=== PATIENT | female | born 1970 | race Caucasian/White ===

== ENCOUNTER 2018-07-20 22:31 | Observation (INO) ==
[2018-07-20] MEDS ORDERED: methylPREDNISolone 125 MG/2 ML VIAL IVP ONE (22:36)
[2018-07-20] MEDS ORDERED: Levofloxacin 750 MG/150 ML 750 MG/150 ML BAG IVPB ONE (22:38)
--- NOTE | 2018-07-20 22:40 | Emergency Department Note ---
Disposition Clinical Impression: COPD (chronic obstructive pulmonary disease), Acute bronchitis, Hyperglycemia, drug-induced, Hypoxia Disposition: Admitted As Inpatient Condition: Fair Referrals: Chas Moreira MD [Primary Care Provider] - Forms: ED Satisfaction Letter Time of Disposition: 00:14 SOB HPI - General Chief Complaint: ED Recheck/Abnormal Lab/Rx Stated Complaint: bronchitsis Time Seen by Provider: 07/20/18 22:40 Source: patient Mode of arrival: ambulatory Limitations: no limitations Nursing Notes Reviewed: Yes Vital Signs Reviewed: Yes - History of Present Illness 47-year-old female seen yesterday by the emergency room recommended hospitalization at that time because she had low O2 sats and was typed auscultation with an underlying diagnosis of bronchitis Hicks hospitalization at time today went to local urgent care the doctor there told her she was going to if she went home and went to bed as a result she came up to the emergency room after she went home and then came back to the emergency room because that Sitting on her mind. Admits to having shortness of breath cough congestion wheezing she's been having just a little bit of phlegm production states that is really no fever she denies diarrhea melena hematochezia hematemesis states this is been going on for at least a week plus to see him on a course of antibiotics and as well as steroids with no relief she's doing her breathing treatments 4 times a day she's been told she can do them up to 6 times a day said initially she got better but now she is getting worse. She denies any syncope she denies any rash or lesion she denies anything makes it better she says activity makes it worse actually pain except for with respirations a 2-3 out of 10 denies any additional complaints with complete entire review systems Pt Subjective Complaint: shortness of breath, cough, pain with inspiration Onset (ago): week(s) (2) Context: recent illness Severity: moderate Consistency/Duration: constant, gradually worsening Improves with: bronchodilators Worsens with: exertion, movement, coughing, inspiration Known history of: COPD, asthma Associated symptoms: Reports: pain with inspiration, cough, wheezing. Denies: fever, sputum production, orthopnea, lower extremity pain, polydipsia, parasthesias, palpitations, hemoptysis, diaphoresis, nausea/vomiting, syncope, abdominal pain, sense of impending doom Treatment prior to arrival: bronchodilator Cough present: Yes Cough Description: Involuntary, Strong, Bronchospastic Cough Frequency: Intermittent Sputum production: No - Related Data Home Medications Medication Instructions Recorded Confirmed Montelukast [Singulair] 10 mg PO DAILY 05/31/16 07/20/18 [place] Twist Inhaler. 11/26/16 Previous Rx's Medication Instructions Recorded Albuterol Sulfate [Albuterol 2 puff IH QID #1 inhaler 07/20/18 Inhaler] Benzonatate [Tessalon] 200 mg PO TID PRN #20 capsule 07/20/18 Doxycycline 100 mg PO BID #10 capsule 07/20/18 PredniSONE [Deltasone] 20 mg PO DAILY #7 tablet 07/20/18 levoFLOXacin [Levaquin] 750 mg PO DAILY #7 tablet 07/20/18 predniSONE [PredniSONE] 20 mg PO BID #10 tablet 07/20/18 Allergies Allergy/AdvReac Type Severity Reaction Status Date / Time No Known Allergies Allergy Verified 07/20/18 18:06 All systems ED: reviewed and negative except as stated. Review of Systems: As Per HPI Constitutional: Denies: fever, chills, weakness Eyes: Denies: eye pain, eye discharge ENT ED: Reports: congestion. Denies: ear pain, throat pain Cardiovascular: Reports: dyspnea on exertion. Denies: chest pain, palpitations, syncope Respiratory: Reports: cough, dyspnea, wheezes, sputum production Gastrointestinal: Denies: abdominal pain, nausea, vomiting Genitourinary: Denies: urgency, dysuria, frequency Musculoskeletal: Denies: back pain, neck pain Integumentary: Denies: rash Neurological: Denies: headache, weakness Psychiatric: Denies: anxiety, depression Endocrine: Denies: fatigue Hematological/Lymphatic: Denies: easy bleeding Allergic/Immunologic: Denies: facial swelling Past Medical History - Past Medical History Attestation: Yes The following information was validated with the patient. Source: patient, old records reviewed, nursing notes reviewed Medical history: Reports: asthma, COPD Psychiatric history: Reports: no psych history - Social History Smoking Status: Current every day smoker Smokeless Tobacco Status: No Alcohol use: Reports: none Drug use: Reports: none Physical Exam - General Limitations: no limitations General appearance: alert, anxious, in distress - Head Head exam: atraumatic, normocephalic, normal inspection - Eye Eye exam: Present: normal appearance, PERRL, EOMI - ENT ENT exam: normal exam, normal oropharynx, mucous membranes moist, TM's normal bilaterally, normal external ear exam - Neck Neck exam: Present: normal inspection, full ROM, trachea midline - Chest Chest inspection: Present: normal inspection, symmetric chest wall rise - Respiratory Respiratory exam: Present: normal lung sounds bilaterally, wheezes, prolonged expiratory phase - Cardiovascular Cardiovascular exam: Present: tachycardia, normal heart sounds - Abdominal Exam Abdominal exam: Present: soft, Non-Tender, normal bowel sounds. Absent: mass, pulsatile mass - Extremities Exam Extremities exam: Present: normal inspection, full ROM, normal capillary refill. Absent: tenderness, pedal edema, joint swelling, calf tenderness - Expanded Lower Extremity Exam Gait: observed and normal - Back Exam Back exam: Present: normal inspection, full ROM. Absent: muscle spasm - Neurological Exam Neurological exam: Present: alert, oriented X3, CN II-XII intact, normal gait - Psychiatric Psychiatric exam: Present: normal affect, normal mood - Skin Skin exam: Present: warm, dry, intact, normal color Course Course Narrative: Patient was seen and evaluated patient had low O2 sats as result patient was given appropriate DuoNeb patient has CT of the chest because she's had a chest x-ray twice within the past 48 hours relatively unchanged as result there may be an underlying pneumonia that is visualized on the CAT scan as result patient remaining hypoxic recommend observation she had declined yesterday a shoulder recommend transferred MedSur if she agrees today for bronchopulmonary toilet influenza swab was done - Reevaluation(s) Reevaluation #1: Despite aerosol treatments patient is having maintaining oxygen to keep her sats above 90% as result patient be admitted for failed outpatient therapy and hypoxia is also noted that the prednisone or steroids are causing her sugar to go up cover her for this at this Vital Signs Temperature 99.0 F 07/20/18 22:32 Pulse Rate 116 07/20/18 22:32 Respiratory Rate 16 07/20/18 22:32 Blood Pressure 149/94 07/20/18 22:32 O2 Sat by Pulse Oximetry 89 07/20/18 22:32 Temperature 99.0 F 07/20/18 22:32 Pulse Rate 114 07/20/18 23:24 Respiratory Rate 18 07/20/18 23:24 Blood Pressure 136/82 07/20/18 23:24 O2 Sat by Pulse Oximetry 93 07/20/18 23:24 Oxygen Delivery Oxygen Delivery Nasal Cannula Shortness of Breath/Dyspnea - Differential Diagnosis Likely: acute exacerbation of chronic obstructive airways disease, pneumonia, asthma with exacerbation - Medical Records Medical records reviewed: Yes I reviewed the patient's medical records. - Lab Data Lab results reviewed: Yes I reviewed the patient's lab results. Result diagrams: 07/20/18 22:49 07/20/18 22:49 Lab Results 07/20/18 07/20/18 07/20/18 Range/Units 22:49 22:49 22:49 WBC 14.8 H (4.3-11.1) K/mcL RBC 5.11 H (3.82-4.97) M/mcL Hgb 17.1 H (11.5-15.4) g/dL Hct 48.5 H (35.3-44.9) % MCV 94.9 (83.0-100.0) fL MCH 33.5 H (28.0-33.3) pg MCHC 35.3 (31.6-35.5) g/dL RDW 13.0 (11.5-14.5) % Plt Count 225 (140-400) K/mcL MPV 8.9 L (9.4-12.4) fL Immature Gran % 1.3 (0-4) % Seg Neutrophils % 93.6 % Lymphocytes % 2.5 % Monocytes % 2.4 % Eosinophils % 0.0 % Basophils % 0.2 % Neutrophils # 13.9 H (1.6-8.9) K/mcL Lymphocytes # 0.4 L (0.6-4.6) K/mcL Monocytes # 0.4 (0.0-1.3) K/mcL Eosinophils # 0.0 (0.0-0.6) K/mcL Basophils # 0.0 (0.0-0.2) K/mcL PT 12.0 (9.4-12.1) Seconds INR 1.1 APTT 23.7 L (26.0-36.0) Seconds Sodium 138 (136-145) mEq/L Potassium 3.4 L (3.5-5.1) mEq/L Chloride 97 L (98-107) mEq/L Carbon Dioxide 28 (23-29) mEq/L BUN 23 H (6-20) mg/dL Creatinine 0.82 (0.60-1.20) mg/dL Est GFR ( Amer) > 60 (> 60) Est GFR (Non-Af Amer) > 60 (> 60) BUN/Creatinine Ratio 28 H (6-26) Glucose 320 H (70-105) mg/dL Calculated Osmolality 302 H (280-300) Lactic Acid (0.5-2.2) mmol/L Calcium 9.7 (8.6-10.3) mg/dL Total Bilirubin 0.7 (0.3-1.0) mg/dL AST 12 L (13-39) Units/L ALT 17 (7-52) Units/L Alkaline Phosphatase 56 (34-104) Units/L Serum Total Protein 6.7 (6.4-8.9) g/dL Albumin 4.2 (3.5-5.7) g/dL Globulin 2.5 (2.4-3.5) g/dL Albumin/Globulin Ratio 1.7 (1.1-2.2) Urine Color (Yellow) Urine Clarity (Clear) Urine pH (5.0-8.0) pH Units Ur Specific [place] (1.010-1.025) Urine Protein (Neg-Trace) mg/dL Urine Glucose (UA) (Normal) mg/dL Urine Ketones (Negative) mg/dL Urine Blood (Negative) Urine Nitrite (Negative) Urine Bilirubin (Negative) Urine Urobilinogen (Normal) mg/dL Ur Leukocyte Esterase (Negative) Urine Microscopic RBC (0-3) per hpf Urine Microscopic WBC (0-3) per hpf Ur Squamous Epith Cells (None-Few) per lpf Urine Bacteria (None-Few) per hpf Urine Mucus (Few) Ur Culture Indicated? (NO) 07/20/18 07/20/18 Range/Units 22:49 23:20 WBC (4.3-11.1) K/mcL RBC (3.82-4.97) M/mcL Hgb (11.5-15.4) g/dL Hct (35.3-44.9) % MCV (83.0-100.0) fL MCH (28.0-33.3) pg MCHC (31.6-35.5) g/dL RDW (11.5-14.5) % Plt Count (140-400) K/mcL MPV (9.4-12.4) fL Immature Gran % (0-4) % Seg Neutrophils % % Lymphocytes % % Monocytes % % Eosinophils % % Basophils % % Neutrophils # (1.6-8.9) K/mcL Lymphocytes # (0.6-4.6) K/mcL Monocytes # (0.0-1.3) K/mcL Eosinophils # (0.0-0.6) K/mcL Basophils # (0.0-0.2) K/mcL PT (9.4-12.1) Seconds INR APTT (26.0-36.0) Seconds Sodium (136-145) mEq/L Potassium (3.5-5.1) mEq/L Chloride (98-107) mEq/L Carbon Dioxide (23-29) mEq/L BUN (6-20) mg/dL Creatinine (0.60-1.20) mg/dL Est GFR ( Amer) (> 60) Est GFR (Non-Af Amer) (> 60) BUN/Creatinine Ratio (6-26) Glucose (70-105) mg/dL Calculated Osmolality (280-300) Lactic Acid 3.0 H (0.5-2.2) mmol/L Calcium (8.6-10.3) mg/dL Total Bilirubin (0.3-1.0) mg/dL AST (13-39) Units/L ALT (7-52) Units/L Alkaline Phosphatase (34-104) Units/L Serum Total Protein (6.4-8.9) g/dL Albumin (3.5-5.7) g/dL Globulin (2.4-3.5) g/dL Albumin/Globulin Ratio (1.1-2.2) Urine Color Yellow (Yellow) Urine Clarity Clear (Clear) Urine pH 5.0 (5.0-8.0) pH Units Ur Specific [place] >= 1.030 H (1.010-1.025) Urine Protein Trace (Neg-Trace) mg/dL Urine Glucose (UA) >=1000 H (Normal) mg/dL Urine Ketones 15 H (Negative) mg/dL Urine Blood Trace-lysed H (Negative) Urine Nitrite Negative (Negative) Urine Bilirubin Negative (Negative) Urine Urobilinogen Normal (Normal) mg/dL Ur Leukocyte Esterase Negative (Negative) Urine Microscopic RBC 0-3 (0-3) per hpf Urine Microscopic WBC 0-3 (0-3) per hpf Ur Squamous Epith Cells Few (None-Few) per lpf Urine Bacteria Few (None-Few) per hpf Urine Mucus Many H (Few) Ur Culture Indicated? NO (NO) - Radiology Data Radiology results reviewed: Yes I reviewed the patient's radiology results. Critical Care Time Critical Care Time: No Sepsis Event Note - Evaluation Current Stage of Suspected Sepsis: ruled out Reason for ruling out sepsis: did not meet SIrs and other criteria Possible Source of Sepsis: pulmonary - Focused Exam Date of Encounter: 07/20/18 Time of Encounter: 23:03 Vital Signs: Vital Signs Temp Pulse Resp BP Pulse Ox 07/20/18 23:24 114 18 136/82 93 07/20/18 22:51 16 93 07/20/18 22:32 99.0 F 116 16 149/94 89 Respiratory Exam: Present: wheezes, decreased breath sounds, prolonged expiratory phas Cardiovascular Exam: Present: tachycardia (repeated aerosol treatments) Capillary Refill: < 2 seconds Peripheral Pulse Strength: 3+ normal Peripheral Pulse Location: Radial Skin Exam: normal turgor - Bedside Monitoring Bedside Ultrasound Performed: No Passive Leg raise/fluid bolus: not performed
[2018-07-20] MEDS ORDERED: 0.9 % Sodium Chloride 1,000 ML IVC SCH (22:45)
[2018-07-20] MEDS ORDERED: Ipratropium/Albuterol Neb 3 ML IH ONE (22:46)
[2018-07-20 22:59] LABS: Basophils % 0.2 %; Hematocrit 48.5 % (35.3-44.9); Hemoglobin 17.1 g/dL (11.5-15.4); Immature Granulocytes % 1.3 % (0-4); Lymphocytes # 0.4 K/mcL (0.6-4.6); Lymphocytes % 2.5 %; Mean Corpuscular HGB Conc 35.3 g/dL (31.6-35.5); Mean Corpuscular Hemoglobin 33.5 pg (28.0-33.3); Mean Corpuscular Volume 94.9 fL (83.0-100.0); Mean Platelet Volume 8.9 fL (9.4-12.4); Monocytes # 0.4 K/mcL (0.0-1.3); Monocytes % 2.4 %; Neutrophils # 13.9 K/mcL (1.6-8.9); Platelet Count 225 K/mcL (140-400); Red Blood Count 5.11 M/mcL (3.82-4.97); Segmented Neutrophils % 93.6 %
[2018-07-20 23:06] LABS: INR 1.1
[2018-07-20 23:08] LABS: Activated Partial Thrombo Time 23.7 Seconds (26.0-36.0)
[2018-07-20 23:18] LABS: Alanine Aminotransferase 17 Units/L (7-52); Albumin 4.2 g/dL (3.5-5.7); Albumin/Globulin Ratio 1.7 (1.1-2.2); Alkaline Phosphatase 56 Units/L (34-104); Aspartate Amino Transferase 12 Units/L (13-39); BUN/Creatinine Ratio 28 (6-26); Bilirubin,Total 0.7 mg/dL (0.3-1.0); Blood Urea Nitrogen 23 mg/dL (6-20); Calcium 9.7 mg/dL (8.6-10.3); Carbon Dioxide 28 mEq/L (23-29); Chloride 97 mEq/L (98-107); Globulin 2.5 g/dL (2.4-3.5); Glucose 320 mg/dL (70-105); Osmolality,Calculated 302 (280-300); Potassium 3.4 mEq/L (3.5-5.1); Sodium 138 mEq/L (136-145); Total Protein 6.7 g/dL (6.4-8.9); eGFR For Non-African Americans > 60 (> 60)
[2018-07-20 23:26] LABS: Bilirubin,Urine Negative (Negative); Blood,Urine Trace-lysed (Negative); Clarity,Urine Clear (Clear); Color,Urine Yellow (Yellow); Glucose,Urine (UA) >=1000 mg/dL (Normal); Ketones,Urine 15 mg/dL (Negative); Leukocyte Esterase,Urine Negative (Negative); Nitrite,Urine Negative (Negative); Protein,Urine Trace mg/dL (Neg-Trace); Specific Gravity,Urine >= 1.030 (1.010-1.025); Urobilinogen,Urine Normal (Normal)
[2018-07-20 23:39] LABS: Bacteria,Urine Few per hpf (None-Few); Mucus,Urine Many (Few); RBC,Urine 0-3 per hpf (0-3); Squamous Epithelial Cell,Urine Few per lpf (None-Few); WBC,Urine 0-3 per hpf (0-3)
[2018-07-21] MEDS ORDERED: Insulin NPH/REG 70/30 300 UNIT/3 ML per UNIT SQ STA ×2 (00:09→00:36)
[2018-07-21] MEDS ORDERED: *HR* Dextrose 50 % in Water (Syg) 50 ML SYRINGE IVP PRN (00:36)
[2018-07-21] MEDS ORDERED: D5% in Water 1,000 ML IVC PRN (00:36)
[2018-07-21] MEDS ORDERED: Dextrose Gel 15 GM/37.5 ML TUBE PO PRN ×2 (00:36)
[2018-07-21] MEDS ORDERED: Naloxone 0.4 MG/ML INJ IVP PRN (00:36)
[2018-07-21] MEDS: 0.9 % Sodium Chloride 1,000 ML IVC SCH ×2 (01:11→09:26)
[2018-07-21] MEDS: Ipratropium/Albuterol Neb 3 ML IH SCH ×2 (05:31→10:11)
[2018-07-21 05:42] LABS: Basophils % 0.2 %; Hematocrit 43.7 % (35.3-44.9); Hemoglobin 15.1 g/dL (11.5-15.4); Immature Granulocytes % 1.4 % (0-4); Lymphocytes # 0.4 K/mcL (0.6-4.6); Lymphocytes % 3.2 %; Mean Corpuscular HGB Conc 34.6 g/dL (31.6-35.5); Mean Corpuscular Volume 95.6 fL (83.0-100.0); Mean Platelet Volume 8.8 fL (9.4-12.4); Monocytes # 0.4 K/mcL (0.0-1.3); Neutrophils # 12.1 K/mcL (1.6-8.9); Platelet Count 187 K/mcL (140-400); Red Blood Count 4.57 M/mcL (3.82-4.97); Segmented Neutrophils % 92.2 %
[2018-07-21 06:00] LABS: BUN/Creatinine Ratio 34 (6-26); Blood Urea Nitrogen 25 mg/dL (6-20); Calcium 8.8 mg/dL (8.6-10.3); Carbon Dioxide 29 mEq/L (23-29); Chloride 102 mEq/L (98-107); Glucose 213 mg/dL (70-105); Osmolality,Calculated 297 (280-300); Potassium 3.6 mEq/L (3.5-5.1); Sodium 138 mEq/L (136-145); eGFR For Non-African Americans > 60 (> 60)
[2018-07-21] MEDS: MethylPREDNISolone 40 MG/ML VIAL IVP SCH ×4 (06:35→23:55)
[2018-07-21] MEDS: Insulin LISPRO 300 UNITS/3 ML VIAL SQ SCH ×3 (09:46→17:15)
--- NOTE | 2018-07-21 11:32 | Internal Med History&Physical ---
Date of Encounter: 07/21/18 Time of Encounter: 10:55 Assessment and Plan (1) Acute bronchitis Current visit: Yes Status: Acute She was started on IV Levaquin and Solu-Medrol in emergency room. Add lactobacillus. Qualifiers: Bronchitis organism: unspecified organism Qualified Code(s): J20.9 - Acute bronchitis, unspecified (2) DM type 2 (diabetes mellitus, type 2) Current visit: Yes Status: Acute Check hemoglobin A1c in a.m. 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 Will check room air oximetry on 6 minute walk prior to discharge. Qualifiers: COPD type: unspecified COPD Qualified Code(s): J44.9 - Chronic obstructive pulmonary disease, unspecified Internal Medicine - H&P: HPI Chief complaint: Dyspnea Admitted From: Emergency Dept Plans for Post Hospital Care: Home History of present illness: Ms. Mcdaniels is a 47 year old female who came to emergency room complaining of in creased dyspnea onset approximately 2 weeks earlier. She had been seen in emergency room the previous day but declined admission. She received prescription for antibiotic and prednisone. She went to local urgent care morning of admission for same symptoms. When she did not feel improved she came back to emergency room and was evaluated. She was felt to have exacerbation of COPD and was agreeable to admission to [facility] floor for ongoing care needs. Respiratory history is significant for having smoked since age 15 up to 2 packs per day. She reports a diagnosis of COPD with pulmonary function testing done approximately 2010. She does not use home oxygen and has not been tested for sleep apnea. Past Med Surg Social Fam HX - Past Medical History Medical history: asthma, COPD Psychiatric history: no psych history - Past Surgical History Additional surgical history: Tubal ligation - Social History Smoking Status: Current every day smoker Smokeless Tobacco Status: No Alcohol use: none Drug use: none Internal Medicine - H&P: Meds Montelukast [Singulair] 10 mg PO DAILY 05/31/16 [History] [place] Twist Inhaler. 11/26/16 [History] Albuterol Sulfate [Albuterol Inhaler] 2 puff IH QID #1 inhaler 07/20/18 [Rx] Benzonatate [Tessalon] 200 mg PO TID PRN #20 capsule 07/20/18 [Rx] Doxycycline 100 mg PO BID #10 capsule 07/20/18 [Rx] PredniSONE [Deltasone] 20 mg PO DAILY #7 tablet 07/20/18 [Rx] levoFLOXacin [Levaquin] 750 mg PO DAILY #7 tablet 07/20/18 [Rx] predniSONE [PredniSONE] 20 mg PO BID #10 tablet 07/20/18 [Rx] Allergy/AdvReac Type Severity Reaction Status Date / Time No Known Allergies Allergy Verified 07/20/18 18:06 All Systems PM: A 10-system review of systems was performed and is negative for pertinent findings except as documented above in the HPI. Review of systems: Gen.: She states her weight has decreased approximately 25 pounds in the past year, unintentionally Cardiovascular: She has history of hypertension but denies CT heart failure angina DVT or pulmonary embolus Respiratory: As per history of present illness GI: She has had cholecystectomy. She denies disorders of her liver or exocrine pancreas : She denies hematuria dysuria or kidney stones Neurologic: She denies large distribution strokes or seizures. Endocrine: She has been diagnosed with "borderline diabetes." Hemoglobin A1c was 6.0% on 02/21/2015. She denies thyroid disease or known hyperlipidemia. Hematology/oncology: She denies blood disorders cancers or anemia Psychiatric: She has anxiety and depression denies other mental health diagnoses. [place] skeletal: She denies arthritis gout or other bone joint or muscle disorders. - Constitutional Vitals: Temp Pulse Resp BP Pulse Ox 99.1 F 107 17 149/79 97 07/21/18 11:09 07/21/18 11:09 07/21/18 11:09 07/21/18 11:09 07/21/18 11:09 Exam: Gen.: She is a well-developed well-nourished female lying in bed who appears slightly dyspneic at rest HEENT: Head is atraumatic and normocephalic. Eyes: EOMI. There is no scleral icterus. Mouth: Mucosa is moist. Neck: Supple and nontender. There is no thyromegaly or adenopathy noted. Heart: Regular with rate approximately 104/m. No murmurs or gallops are heard. Lungs: She has prolonged expiratory phase and mild diffuse wheezing. No egophony is heard. Abdomen: Soft and nontender. No masses or guarding are noted. Extremities: There is no cyanosis edema or clubbing noted. Dorsalis pedis and posterior tibial pulses are trace to 1+ palpable bilaterally. Neurologic: Mental status: She is talkative and a good historian. Cranial nerves: Smile is symmetric. Forehead wrinkles bilaterally. Tongue protrudes midline. EOMI. Motor: There is no pronator drift. Cerebellar: Finger to nose is intact bilaterally. Skin: Warm and dry Internal Med - H&P Results - Labs CBC & Chem 7: 07/21/18 05:25 07/21/18 05:25 Labs: Short CBC 07/20/18 07/21/18 Range/Units 22:49 05:25 WBC 14.8 H 13.1 H (4.3-11.1) K/mcL Hgb 17.1 H 15.1 D (11.5-15.4) g/dL Hct 48.5 H 43.7 (35.3-44.9) % Plt Count 225 187 (140-400) K/mcL Neutrophils # 13.9 H 12.1 H (1.6-8.9) K/mcL BMP 07/20/18 07/21/18 22:49 05:25 Sodium 138 138 Potassium 3.4 L 3.6 Chloride 97 L 102 Carbon Dioxide 28 29 BUN 23 H 25 H Creatinine 0.82 0.73 Glucose 320 H 213 H Calcium 9.7 8.8 Liver Function 07/20/18 Range/Units 22:49 Total Bilirubin 0.7 (0.3-1.0) mg/dL AST 12 L (13-39) Units/L ALT 17 (7-52) Units/L Alkaline Phosphatase 56 (34-104) Units/L Albumin 4.2 (3.5-5.7) g/dL Urine 07/20/18 Range/Units 23:20 Urine Color Yellow (Yellow) Urine Clarity Clear (Clear) Urine pH 5.0 (5.0-8.0) pH Units Ur Specific [place] >= 1.030 H (1.010-1.025) Urine Protein Trace (Neg-Trace) mg/dL Urine Glucose (UA) >=1000 H (Normal) mg/dL - Impressions ITS Impressions Chest CT 07/20/18 22:47 IMPRESSION: No acute disease. Old granulomatous disease. D/ / Jostin Villatoro MD / Jostin Villatoro MD Interpreting Provider: Jostin Villatoro MD
[2018-07-21] MEDS: Budesonide/Formoterol 160/4.5 1 PUFF INH IH SCH ×2 (16:36→21:38)
[2018-07-21] MEDS: Albuterol 2.5 MG/3 ML NEBULIZER IH PRN ×2 (16:40→20:14)
[2018-07-21] MEDS ORDERED: Levofloxacin 500 MG/100 ML 500 MG/100 ML BAG IVPB SCH (18:00)
[2018-07-21] MEDS: Lactobacillus 1 EACH CAP.SPRINK PO SCH (20:34)
[2018-07-22 06:03] LABS: Basophils % 0.2 %; Hematocrit 42.8 % (35.3-44.9); Hemoglobin 14.6 g/dL (11.5-15.4); Immature Granulocytes % 0.9 % (0-4); Lymphocytes # 0.5 K/mcL (0.6-4.6); Lymphocytes % 3.2 %; Mean Corpuscular HGB Conc 34.1 g/dL (31.6-35.5); Mean Corpuscular Hemoglobin 33.6 pg (28.0-33.3); Mean Corpuscular Volume 98.6 fL (83.0-100.0); Monocytes # 0.5 K/mcL (0.0-1.3); Monocytes % 3.1 %; Neutrophils # 15.3 K/mcL (1.6-8.9); Platelet Count 167 K/mcL (140-400); Red Blood Count 4.34 M/mcL (3.82-4.97); Red Cell Distribution Width 12.8 % (11.5-14.5); Segmented Neutrophils % 92.6 %
[2018-07-22] MEDS: MethylPREDNISolone 40 MG/ML VIAL IVP SCH ×2 (06:14→11:59)
[2018-07-22 06:25] LABS: Magnesium 2.6 mg/dL (1.6-2.6)
[2018-07-22 06:37] LABS: Thyroid Stimulating Hormone 0.198 mcIU/mL (0.340-5.600)
[2018-07-22 06:58] VITALS: BP 123/78
[2018-07-22] MEDS ORDERED: Tiotropium 18 MCG inhalation IH SCH (07:00)
[2018-07-22] MEDS: Lactobacillus 1 EACH CAP.SPRINK PO SCH (08:12)
[2018-07-22] MEDS: Insulin LISPRO 300 UNITS/3 ML VIAL SQ SCH ×2 (08:19→12:00)
[2018-07-22 09:36] LABS: Estimated Average Glucose 154 mg/dl
[2018-07-22] MEDS: Budesonide/Formoterol 160/4.5 1 PUFF INH IH SCH (09:37)
[2018-07-22] MEDS: Albuterol 2.5 MG/3 ML NEBULIZER IH PRN (09:39)
--- NOTE | 2018-07-22 10:11 | Discharge Summary ---
Orders not resulted at time of discharge: Pending orders 07/20/18 23:03 Culture,Blood [] Stat Date of Encounter: 07/22/18 Time of Encounter: 09:55 - Discharge Diagnosis (1) Acute bronchitis Priority: Primary Status: Acute Qualifiers: Bronchitis organism: unspecified organism Qualified Code(s): J20.9 - Acute bronchitis, unspecified (2) DM type 2 (diabetes mellitus, type 2) Priority: Secondary Status: Acute Qualifiers: Diabetes mellitus mcfp insulin use: without ad terminal makeup operator use Diabetes mellitus complication status: without complication Qualified Code(s): E11.9 - Type 2 diabetes mellitus without complications (3) COPD (chronic obstructive pulmonary disease) Priority: Secondary Status: Chronic Qualifiers: COPD type: unspecified COPD Qualified Code(s): J44.9 - Chronic obstructive pulmonary disease, unspecified (4) Low TSH level Priority: Secondary Status: Acute Hospital course: Ms. Mcdaniels is a 47 year old female who came to emergency room complaining of increased dyspnea onset approximately 2 weeks earlier. She had been seen in emergency room the previous day but declined admission. She received prescription for antibiotic and prednisone. She went to local urgent care morning of admission for same symptoms. When she did not feel improved she came back to emergency room and was evaluated. She was felt to have exacerbation of COPD and was agreeable to admission to [facility] floor for ongoing care needs. Initial orders were written by the emergency room physician. I saw her on July 21 and performed the history and physical. She was started on IV Levaq uin and Solu-Medrol. Lactobacillus was added. When I saw her the following day she had clinical improvement with decreased wheezing. Follow-up lab work showed WBC remaining elevated at 16.5 with 92.6% segs. I felt part of the elevation was due to steroid use. She remained afebrile during her hospital stay and felt stable for discharge home. She will continue with antibiotic and probiotic with prednisone for 3 additional days at discharge. Chest CTA in emergency room showed no infiltrate or other worrisome pathology. Hemoglobin A1c returned satisfactory 7.0%. Her PCP can monitor her DM 2. TSH returned suppressed at 0.198. I did not discuss this with the patient. Her PCP can follow up on this as needed. Hemoglobin returned to normal range at 14.6 by day of discharge. Room air oximetry will be checked on 6 minute walk prior to discharge to see if home oxygen is needed. I encouraged her to become a nonsmoker. She will follow with her PCP Dr. Moreira within 1 week. - Time Spent with Patient Total time spent providing and/or coordinating discharge services: - Discharge Medications Prescriptions: Lactobacillus [Culturelle] 1 each PO BID #6 cap.sprink levoFLOXacin [Levaquin] 750 mg PO DAILY #3 tablet Potassium Chloride 10 meq PO DAILY #30 tab.er.prt predniSONE [PredniSONE] 10 mg PO BID #3 tablet Home Medications: Montelukast [Singulair] 10 mg PO DAILY 05/31/16 [History] [place] Twist Inhaler. 11/26/16 [History] Albuterol Sulfate [Albuterol Inhaler] 2 puff IH QID #1 inhaler 07/20/18 [Rx] Benzonatate [Tessalon] 200 mg PO TID PRN #20 capsule 07/20/18 [Rx] Lactobacillus [Culturelle] 1 each PO BID #6 cap.sprink 07/22/18 [Rx] Potassium Chloride 10 meq PO DAILY #30 tab.er.prt 07/22/18 [Rx] levoFLOXacin [Levaquin] 750 mg PO DAILY #3 tablet 07/22/18 [Rx] predniSONE [PredniSONE] 10 mg PO BID #3 tablet 07/22/18 [Rx] Allergies/Adverse Reactions: Allergy/AdvReac Type Severity Reaction Status Date / Time No Known Allergies Allergy Verified 07/20/18 18:06 Date of admission: 07/21/18 00:12 Primary care physician: Chas Mroeira MD Consults: 07/21/18 00:36 Consult to Nurse Navigator [CONS] Routine Comment: - Constitutional Vitals: Temp Pulse Resp BP Pulse Ox 98.8 F 70 16 123/78 94 07/22/18 06:46 07/22/18 06:46 07/22/18 09:40 07/22/18 06:46 07/22/18 09:40 - Patient Status Disposition: Home, Self-Care Condition: Fair - Discharge Instructions Follow Up With: Chas Moreira MD [Primary Care Provider] - 1 week - Diet and Activity Activity: resume usual activities as tolerated Diet: advance to your usual diet
== END 2018-07-22 16:26 | disposition home or self-care (01) ==
LOC: INPPIK 22:31 → EMEROOPIK 22:31 → INPPIK 07-21 00:35
PROVIDERS: ADMIT Internal Medicine; ATTEND Internal Medicine

== ENCOUNTER 2018-11-17 23:08 | Inpatient (IN) ==
[2018-11-17] MEDS ORDERED: Ipratropium/Albuterol Neb 3 ML IH ONE (23:22)
[2018-11-17] MEDS ORDERED: methylPREDNISolone 125 MG/2 ML VIAL IVP ONE (23:22)
--- NOTE | 2018-11-17 23:25 | Emergency Department Note ---
Disposition Clinical Impression: Acute exacerbation of chronic obstructive airways disease Disposition: Admitted As Inpatient Referrals: Chas Moreira MD [Primary Care Provider] - General Adult HPI - General Chief complaint: ED Shortness of Breath/Dyspnea Stated complaint: COPD EXACERBATION Time Seen by Provider: 11/17/18 23:10 Source: patient Mode of arrival: private vehicle Limitations: no limitations Nursing Notes Reviewed: Yes Vital Signs Reviewed: Yes - History of Present Illness HPI Narrative: Patient presents complaining of a four-day history of increasing shortness of breath. She saw her primary care provider he placed her on some medications which she was taking that she did not seem to get better so she the urgent care yesterday and aggressively is gotten worse tonight came to the emergency department. She denies any fever tonight base of the first day she had the shortness of breath she did have a fever. There is been no chest pain is complains shortness breath with wheezing no belly pain diarrhea rashes or other complaints Onset (ago): day(s) (4 days) Location: chest Pain Scale: 9 Consistency: constant Improves with: nothing Worsens with: nothing Associated symptoms: Reports: shortness of breath - Related Data Home Medications Medication Instructions Recorded Confirmed Montelukast [Singulair] 10 mg PO DAILY 05/31/16 11/17/18 Hydrochlorothiazide [Microzide] 12.5 mg PO DAILY 11/16/18 11/17/18 Previous Rx's Medication Instructions Recorded Albuterol Sulfate [Albuterol 2 puff IH QID #1 inhaler 07/20/18 Inhaler] Potassium Chloride 10 meq PO DAILY #30 tab.er.prt 07/22/18 Amoxicillin/Clavulanate [Augmentin] 875 mg PO BIDWM #20 tablet 11/16/18 predniSONE [PredniSONE] 20 mg PO DAILY #13 tablet 11/16/18 Allergies Allergy/AdvReac Type Severity Reaction Status Date / Time No Known Allergies Allergy Verified 11/17/18 23:19 All systems ED: reviewed and negative except as stated. Review of Systems: As Per HPI Constitutional: Denies: fever, chills, weakness, weight change Eyes: Denies: eye pain, eye discharge, vision change ENT ED: Denies: ear pain, throat pain, dental pain, hearing loss, epistaxis, congestion, dysphagia Cardiovascular: Denies: chest pain, palpitations, dyspnea on exertion, edema, syncope Respiratory: Reports: as per HPI, cough, dyspnea, wheezes Gastrointestinal: Denies: abdominal pain, nausea, vomiting, diarrhea, constipation, hematemesis, melena, hematochezia Genitourinary: Denies: dysuria, frequency, hematuria, discharge Musculoskeletal: Denies: back pain, neck pain, arthralgia, myalgia Integumentary: Denies: rash, abrasion, lesions Neurological: Denies: headache, weakness, numbness, paresthesias, confusion, abnormal gait, vertigo Psychiatric: Denies: anxiety, depression, suicidal thoughts, homicidal thoughts, auditory hallucinations, visual hallucinations Endocrine: Denies: fatigue Hematological/Lymphatic: Denies: easy bleeding, easy bruising Allergic/Immunologic: Denies: facial swelling, urticaria Past Medical History - Past Medical History Attestation: Yes The following information was validated with the patient. 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 : 2 Para: 2 Ab: 0 - Social History Smoking Status: Current every day smoker Smokeless Tobacco Status: No Alcohol use: Reports: none Drug use: Reports: none Physical Exam - General Limitations: no limitations General appearance: alert - Head Head exam: atraumatic, normocephalic, normal inspection - Eye Eye exam: Present: normal appearance, PERRL, EOMI - ENT ENT exam: normal exam, normal oropharynx, mucous membranes moist - Neck Neck exam: Present: normal inspection, full ROM, trachea midline - Chest Chest inspection: Present: normal inspection, symmetric chest wall rise - Respiratory Respiratory exam: Present: wheezes, prolonged expiratory phase. Absent: respiratory distress - Cardiovascular Cardiovascular exam: Present: regular rate, normal rhythm, normal heart sounds - Abdominal Exam Abdominal exam: Present: soft, Non-Tender. Absent: tenderness, distention, guarding, rebound, rigidity - Extremities Exam Extremities exam: Present: normal inspection, full ROM. Absent: tenderness, pedal edema - Back Exam Back exam: Present: normal inspection, full ROM. Absent: tenderness - Neurological Exam Neurological exam: Present: alert, oriented X3, CN II-XII intact - Psychiatric Psychiatric exam: Present: normal affect, normal mood - Skin Skin exam: Present: warm, dry, intact Course Vital Signs Temperature 97.6 F 11/17/18 23:08 Pulse Rate 94 11/17/18 23:08 Respiratory Rate 30 11/17/18 23:08 Blood Pressure 135/84 11/17/18 23:08 O2 Sat by Pulse Oximetry 93 11/17/18 23:08 Temperature 97.6 F 11/17/18 23:08 Pulse Rate 94 11/17/18 23:08 Respiratory Rate 30 11/17/18 23:08 Blood Pressure 135/84 11/17/18 23:08 O2 Sat by Pulse Oximetry 93 11/17/18 23:08 Oxygen Delivery Oxygen Delivery Nasal Cannula Medical Decision Making - MDM Narrative Medical decision making narrative: I reviewed the patient's medication list The patient's breathing improved after treatment here but still in my opinion needs to stay overnight. Case was discussed with Dr. Miranda who has graciously agreed with admission - Lab Data Lab results reviewed: Yes I reviewed the patient's lab results. - Radiology Data Radiology results reviewed: Yes I reviewed the patient's radiology results. - EKG Data EKG #1 EKG attestation: Yes I reviewed and interpreted this EKG. EKG results narrative: EKG shows sinus rhythm rate of 96 beats. TN interval is 130 ms [place] 95 ms QT QTc interval 365 and 462 ms respectively R axis of [address] depression inferiorly is noted. No ST elevation
[2018-11-17] MEDS ORDERED: 0.9 % Sodium Chloride 1,000 ML IVC SCH (23:30)
[2018-11-17 23:39] LABS: Hematocrit 44.4 % (35.3-44.9); Hemoglobin 15.4 g/dL (11.5-15.4); Mean Corpuscular HGB Conc 34.7 g/dL (31.6-35.5); Mean Corpuscular Volume 95.3 fL (83.0-100.0); Mean Platelet Volume 9.7 fL (9.4-12.4); Platelet Count 151 K/mcL (140-400); Red Blood Count 4.66 M/mcL (3.82-4.97); Red Cell Distribution Width 12.5 % (11.5-14.5)
[2018-11-17 23:58] LABS: Alanine Aminotransferase 19 Units/L (7-52); Albumin/Globulin Ratio 1.4 (1.1-2.2); Alkaline Phosphatase 63 Units/L (34-104); Aspartate Amino Transferase 18 Units/L (13-39); BUN/Creatinine Ratio 31 (6-26); Bilirubin,Total 0.7 mg/dL (0.3-1.0); Blood Urea Nitrogen 23 mg/dL (6-20); Calcium 9.5 mg/dL (8.6-10.3); Carbon Dioxide 28 mEq/L (23-29); Chloride 100 mEq/L (98-107); Globulin 2.9 g/dL (2.4-3.5); Glucose 275 mg/dL (70-105); Osmolality,Calculated 297 (280-300); Potassium 4.1 mEq/L (3.5-5.1); Sodium 137 mEq/L (136-145); Total Protein 6.9 g/dL (6.4-8.9); Troponin I < 0.03 ng/mL (< 0.04); eGFR For Non-African Americans > 60 (> 60)
[2018-11-18] LABS: Platelet Estimate Normal (Normal)
[2018-11-18 00:03] LABS: Basophils % 0.5 %; Immature Granulocytes % 0.5 % (0-4); Lymphocytes # 0.8 K/mcL (0.6-4.6); Lymphocytes % 14.9 %; Monocytes % 5.3 %; Neutrophils # 4.4 K/mcL (1.6-8.9); Segmented Neutrophils % 78.8 %
[2018-11-18 00:04] LABS: Monocytes # 0.3 K/mcL (0.0-1.3)
[2018-11-18] MEDS ORDERED: cefTRIAXone 1,000 MG in 0.9 % Sodium Chloride Mini Bag 100 ML IVPB ONE (00:25)
[2018-11-18] MEDS ORDERED: Naloxone 0.4 MG/ML INJ IVP PRN (00:38)
[2018-11-18] MEDS ORDERED: Ipratropium/Albuterol Neb 3 ML IH SCH (00:45)
[2018-11-18] MEDS: Ipratropium/Albuterol Neb 3 ML IH SCH ×5 (04:33→20:10)
[2018-11-18] MEDS: 0.9 % Sodium Chloride 1,000 ML IVC SCH ×2 (05:28→13:13)
[2018-11-18] MEDS: methylPREDNISolone 125 MG/2 ML VIAL IVP SCH ×4 (05:31→23:55)
[2018-11-18 06:01] LABS: Bilirubin,Urine Negative (Negative); Blood,Urine Negative (Negative); Clarity,Urine Clear (Clear); Color,Urine Yellow (Yellow); Glucose,Urine (UA) 500 mg/dL (Normal); Ketones,Urine 15 mg/dL (Negative); Leukocyte Esterase,Urine Negative (Negative); Nitrite,Urine Negative (Negative); Protein,Urine Trace mg/dL (Neg-Trace); Specific Gravity,Urine 1.025 (1.010-1.025); Urobilinogen,Urine Normal (Normal)
[2018-11-18 07:58] LABS: Basophils % 0.9 %; Hematocrit 44.9 % (35.3-44.9); Hemoglobin 15.1 g/dL (11.5-15.4); Immature Granulocytes % 0.7 % (0-4); Lymphocytes # 0.9 K/mcL (0.6-4.6); Mean Corpuscular HGB Conc 33.6 g/dL (31.6-35.5); Mean Corpuscular Hemoglobin 32.5 pg (28.0-33.3); Mean Corpuscular Volume 96.8 fL (83.0-100.0); Mean Platelet Volume 9.8 fL (9.4-12.4); Monocytes # 0.1 K/mcL (0.0-1.3); Monocytes % 2.6 %; Platelet Count 152 K/mcL (140-400); Red Blood Count 4.64 M/mcL (3.82-4.97); Red Cell Distribution Width 12.6 % (11.5-14.5); Segmented Neutrophils % 74.8 %
[2018-11-18 08:12] LABS: Neutrophils # 3.1 K/mcL (1.6-8.9)
[2018-11-18] MEDS: hydroCHLOROthiazide 25 MG TABLET PO SCH (08:40)
[2018-11-18] MEDS ORDERED: predniSONE 20 MG TABLET PO SCH (09:00)
[2018-11-18 09:06] LABS: BUN/Creatinine Ratio 30 (6-26); Blood Urea Nitrogen 23 mg/dL (6-20); Carbon Dioxide 32 mEq/L (23-29); Chloride 101 mEq/L (98-107); Potassium 4.8 mEq/L (3.5-5.1); Sodium 139 mEq/L (136-145)
[2018-11-18 09:07] LABS: Calcium 9.2 mg/dL (8.6-10.3); Glucose 266 mg/dL (70-105); Osmolality,Calculated 301 (280-300); eGFR For Non-African Americans > 60 (> 60)
[2018-11-18 09:10] LABS: Platelet Estimate Normal (Normal); Reactive Lymphocytes Present (Not Present)
--- NOTE | 2018-11-18 15:18 | Electrocardiograph Report ---
[place] [address] Test Date: 2018-11-17 Pat Name: Janet Mcdaniels Department: EDP-16 Room: [facility] Gender: F Workers Compensation Consultant: : 1970 Requested By: Nathanael Call Order Number: [id number] Reading MD: Jordi Dennis Measurements Intervals [place] Rate: 96 P: 86 ID: [id number] QRS: 80 QRSD: 95 T: 43 QT: 365 QTc: 462 Interpretive Statements Sinus rhythm Right atrial enlargement Minimal ST depression, inferior leads Baseline wander in lead(s) V5 Electronically Signed On 11-18-2018 15:16:55 EDT by Jordi Dennis
--- NOTE | 2018-11-18 17:19 | Internal Med History&Physical ---
Date of Encounter: 11/18/18 Time of Encounter: 16:45 Assessment and Plan (1) Acute exacerbation of chronic obstructive airways disease Current visit: Yes Status: Acute Failed outpatient treatment. She has been ordered IV Levaquin and IV steroids. Further workup will be done as needed. (2) DM type 2 (diabetes mellitus, type 2) Current visit: No Status: Acute Check hemoglobin A1c in a.m. 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 Internal Medicine - H&P: HPI Chief complaint: Cough and dyspnea Admitted From: Emergency Dept Plans for Post Hospital Care: Home History of present illness: Ms. Mcdaniels is a 48 year old female who came to emergency room stating she had onset of minimally productive cough and dyspnea 11/10/2018. She reports feeling feverish for 3 days but did not check her temperature. She reports headache, otalgia, and weakness. She went to local urgent care 11/16/2018 and received a prescription for Augmentin and prednisone. She did not feel improved the following day so came to emergency room. She was admitted to [facility] floor with diagnosis of COPD. Respiratory history is significant for having smoked since age 15 up to 2 packs per day. She reports a diagnosis COPD with PFTs done approximately 2010. At time of discharge from [facility] July 2018 she qualified for home oxygen. She states she improved after several weeks of additional steroids and has not used oxygen for approximately 2 months. 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 VIA [place] Psychiatric history: no psych history - Past Surgical History Additional surgical history: Tubal ligation - Social History Smoking Status: Current every day smoker Smokeless Tobacco Status: No Alcohol use: none Drug use: none - Family History Mother History Unknown: Yes Internal Medicine - H&P: Meds Montelukast [Singulair] 10 mg PO DAILY 05/31/16 [History] Albuterol Sulfate [Albuterol Inhaler] 2 puff IH QID #1 inhaler 07/20/18 [Rx] Potassium Chloride 10 meq PO DAILY #30 tab.er.prt 12/12/18 [Rx] Amoxicillin/Clavulanate [Augmentin] 875 mg PO BIDWM #20 tablet 11/16/18 [Rx] Hydrochlorothiazide [Microzide] 12.5 mg PO DAILY 11/16/18 [History] predniSONE [PredniSONE] 20 mg PO DAILY #13 tablet 11/16/18 [Rx] Allergy/AdvReac Type Severity Reaction Status Date / Time No Known Allergies Allergy Verified 11/17/18 23:19 All Systems PM: A 10-system review of systems was performed and is negative for pertinent findings except as documented above in the HPI. Review of systems: Review of systems from her July 2018 [facility] hospitalization were reviewed and revised as below. Gen.: Her weight has been stable at approximate 69 kg since July 2018 hospitalization. Cardiovascular: She has history of hypertension but denies PA heart failure angina DVT or pulmonary embolus Respiratory: As per history of present illness GI: She has had cholecystectomy. She denies disorders of her liver or exocrine pancreas : She denies hematuria dysuria or kidney stones Neurologic: She denies large distribution strokes or seizures. Endocrine: She has been diagnosed with "borderline diabetes." Hemoglobin A1c was 7.0% on 07/22/2018. She denies known hyperlipidemia. TSH was suppressed at 0.198 on 07/22/2018. Hematology/oncology: She denies blood disorders cancers or anemia Psychiatric: She has anxiety and depression but denies other mental health diagnoses. [place] skeletal: She denies arthritis gout or other bone joint or muscle disorders. - Constitutional Vitals: Temp Pulse Resp BP Pulse Ox 98.5 F 108 20 128/87 92 11/18/18 16:19 11/18/18 16:19 11/18/18 16:19 11/18/18 16:19 11/18/18 16:19 Exam: Gen.: She is a well-developed well-nourished female lying in bed who appears slightly dyspneic HEENT: Head is atraumatic and normocephalic. Eyes: EOMI. There is no scleral icterus. Mouth: Mucosa is moist. Neck: Supple and nontender. There is no thyromegaly or adenopathy noted. Heart: Regular without murmurs gallops or ectopics Lungs: She has prolonged expiratory phase and mild diffuse wheezing. No inspiratory crackles are heard. Abdomen: Soft and nontender. No masses or guarding are noted. Extremities: There is no cyanosis edema or clubbing noted. Dorsalis pedis and posterior tibial pulses are trace to 1+ palpable bilaterally. Neurologic: Mental status: She is talkative and a good historian. Cranial nerves: Smile is symmetric. Forehead wrinkles bilaterally. Tongue protrudes midline. EOMI. Motor: There is no pronator drift. Cerebellar: Finger to nose is intact bilaterally. Skin: Warm and dry Internal Med - H&P Results - Labs CBC & Chem 7: 11/18/18 07:45 11/18/18 07:45 Labs: Short CBC 11/17/18 11/18/18 Range/Units 23:31 07:45 WBC 5.6 4.2 L (4.3-11.1) K/mcL Hgb 15.4 15.1 (11.5-15.4) g/dL Hct 44.4 44.9 (35.3-44.9) % Plt Count 151 152 (140-400) K/mcL Neutrophils # 4.4 3.1 (1.6-8.9) K/mcL BMP 11/17/18 11/18/18 23:31 07:45 Sodium 137 139 Potassium 4.1 4.8 Chloride 100 101 Carbon Dioxide 28 32 H BUN 23 H 23 H Creatinine 0.74 0.77 Glucose 275 H 266 H Calcium 9.5 9.2 Cardiac Enzymes 11/17/18 Range/Units 23:31 Troponin I < 0.03 (< 0.04) ng/mL Liver Function 11/17/18 Range/Units 23:31 Total Bilirubin 0.7 (0.3-1.0) mg/dL AST 18 (13-39) Units/L ALT 19 (7-52) Units/L Alkaline Phosphatase 63 (34-104) Units/L Albumin 4.0 (3.5-5.7) g/dL Urine 11/18/18 Range/Units 05:21 Urine Color Yellow (Yellow) Urine Clarity Clear (Clear) Urine pH 5.0 (5.0-8.0) pH Units Ur Specific [place] 1.025 (1.010-1.025) Urine Protein Trace (Neg-Trace) mg/dL Urine Glucose (UA) 500 H (Normal) mg/dL - Impressions ITS Impressions Chest X-Ray 11/17/18 23:22 IMPRESSION: No radiographic evidence of acute cardiopulmonary process. D/ / Nicolas Quiñonez MD / Nicolas Quiñonez MD Interpreting Provider: Nicolas Quiñonez MD
[2018-11-18] MEDS: Levofloxacin 750 MG/150 ML 750 MG/150 ML BAG IVPB SCH (17:47)
[2018-11-18] MEDS: Lactobacillus 1 EACH CAP.SPRINK PO SCH (20:14)
[2018-11-19] MEDS: Ipratropium/Albuterol Neb 3 ML IH SCH ×7 (00:31→23:39)
[2018-11-19] MEDS: methylPREDNISolone 125 MG/2 ML VIAL IVP SCH ×3 (05:16→16:59)
[2018-11-19] MEDS: *HR* Enoxaparin 40 MG/0.4 ML SYRINGE SQ SCH (05:16)
[2018-11-19] MEDS: ALPRAZolam 0.5 MG TABLET PO PRN ×2 (05:16→20:16)
[2018-11-19] MEDS: Budesonide/Formoterol 160/4.5 1 PUFF INH IH SCH ×3 (05:16→19:49)
[2018-11-19 06:39] LABS: Basophils % 0.4 %; Hematocrit 41.9 % (35.3-44.9); Hemoglobin 14.2 g/dL (11.5-15.4); Immature Granulocytes % 0.5 % (0-4); Lymphocytes # 0.8 K/mcL (0.6-4.6); Mean Corpuscular HGB Conc 33.9 g/dL (31.6-35.5); Mean Corpuscular Hemoglobin 32.5 pg (28.0-33.3); Mean Corpuscular Volume 95.9 fL (83.0-100.0); Mean Platelet Volume 9.6 fL (9.4-12.4); Monocytes # 0.4 K/mcL (0.0-1.3); Monocytes % 3.8 %; Neutrophils # 9.6 K/mcL (1.6-8.9); Platelet Count 170 K/mcL (140-400); Red Blood Count 4.37 M/mcL (3.82-4.97); Red Cell Distribution Width 12.2 % (11.5-14.5); Segmented Neutrophils % 88.3 %
[2018-11-19 06:55] LABS: BUN/Creatinine Ratio 36 (6-26); Blood Urea Nitrogen 22 mg/dL (6-20); Calcium 9.4 mg/dL (8.6-10.3); Carbon Dioxide 30 mEq/L (23-29); Chloride 100 mEq/L (98-107); Glucose 278 mg/dL (70-105); Magnesium 2.4 mg/dL (1.6-2.6); Osmolality,Calculated 295 (280-300); Potassium 3.7 mEq/L (3.5-5.1); Sodium 136 mEq/L (136-145); eGFR For Non-African Americans > 60 (> 60)
[2018-11-19 07:08] LABS: Thyroid Stimulating Hormone 0.173 mcIU/mL (0.340-5.600)
[2018-11-19] MEDS: hydroCHLOROthiazide 25 MG TABLET PO SCH (08:05)
[2018-11-19] MEDS: Lactobacillus 1 EACH CAP.SPRINK PO SCH ×2 (08:05→20:16)
[2018-11-19] MEDS: Levofloxacin 750 MG/150 ML 750 MG/150 ML BAG IVPB SCH (08:05)
--- NOTE | 2018-11-19 10:02 | Internal Med Progress Note ---
Date of Encounter: 11/19/18 Time of Encounter: 09:50 - Assessment and plan (1) Acute exacerbation of chronic obstructive airways disease Current Visit: Yes Status: Acute Assessment and plan: November 19. Continue IV Levaquin and steroids. She will be given NicoDerm patch to avoid tobacco withdrawal symptoms. Xanax will be available for anxiety. (2) DM type 2 (diabetes mellitus, type 2) Current Visit: No Status: Acute Assessment and plan: November 19. Hemoglobin A1c ordered. Qualifiers: Diabetes mellitus group home insulin use: without group home use Diabetes mellitus complication status: without complication Qualified Code(s): E11.9 - Type 2 diabetes mellitus without complications (3) Low TSH level Current Visit: No Status: Acute Assessment and plan: November 19. TSH suppressed at 0.173. Free T3 and T4 will be checked. - Subjective Interval history: November 19. She has no new complaints. She still feels dyspneic. - Constitutional Vitals: Temp Pulse Resp BP Pulse Ox 97.8 F 93 24 130/87 98 11/19/18 07:27 11/19/18 07:27 11/19/18 08:38 11/19/18 07:27 11/19/18 08:38 Exam: She is lying in bed and appears slightly dyspneic. She is able to carry on a conversation without difficulty. She is appropriate in conversation her affect is overall cheerful. I had a long discussion with her about her need to comple tely discontinue smoking. I reviewed her medications and lab results. Internal Medicine: Result - Labs CBC & Chem 7: 11/19/18 06:28 11/19/18 06:28 Labs: Short CBC 11/19/18 Range/Units 06:28 WBC 10.9 D (4.3-11.1) K/mcL Hgb 14.2 (11.5-15.4) g/dL Hct 41.9 (35.3-44.9) % Plt Count 170 (140-400) K/mcL BMP 11/19/18 06:28 Sodium 136 Potassium 3.7 Chloride 100 Carbon Dioxide 30 H BUN 22 H Creatinine 0.61 Glucose 278 H Calcium 9.4 Consult Discharge Plan - Plan Referrals: Chas Moreira MD [Primary Care Provider] - 1 week
[2018-11-19 11:31] LABS: Platelet Estimate Normal (Normal); Reactive Lymphocytes Present (Not Present)
[2018-11-19] MEDS: Nicotine 21 MG PATCH.TD24 TD SCH (12:14)
[2018-11-19 13:46] LABS: Estimated Average Glucose 186 mg/dl; Hemoglobin A1C 8.1 %
[2018-11-19 17:22] LABS: Triiodothyronine (T3) Free 2.54 pg/mL (2.50-3.90)
[2018-11-20] MEDS: methylPREDNISolone 125 MG/2 ML VIAL IVP SCH ×5 (01:54→23:39)
[2018-11-20] MEDS: Ipratropium/Albuterol Neb 3 ML IH SCH ×6 (05:05→23:18)
[2018-11-20 05:46] LABS: Basophils % 0.2 %; Hemoglobin 14.4 g/dL (11.5-15.4); Lymphocytes # 0.5 K/mcL (0.6-4.6); Lymphocytes % 4.3 %; Mean Corpuscular HGB Conc 34.3 g/dL (31.6-35.5); Mean Corpuscular Hemoglobin 32.7 pg (28.0-33.3); Mean Corpuscular Volume 95.5 fL (83.0-100.0); Mean Platelet Volume 9.6 fL (9.4-12.4); Monocytes # 0.4 K/mcL (0.0-1.3); Monocytes % 2.9 %; Neutrophils # 11.2 K/mcL (1.6-8.9); Platelet Count 193 K/mcL (140-400); Red Cell Distribution Width 11.9 % (11.5-14.5); Segmented Neutrophils % 91.6 %
[2018-11-20 06:07] LABS: BUN/Creatinine Ratio 39 (6-26); Blood Urea Nitrogen 24 mg/dL (6-20); Calcium 9.4 mg/dL (8.6-10.3); Carbon Dioxide 32 mEq/L (23-29); Chloride 100 mEq/L (98-107); Glucose 258 mg/dL (70-105); Osmolality,Calculated 299 (280-300); Sodium 138 mEq/L (136-145); eGFR For Non-African Americans > 60 (> 60)
[2018-11-20] MEDS: *HR* Enoxaparin 40 MG/0.4 ML SYRINGE SQ SCH (06:29)
[2018-11-20] MEDS: Levofloxacin 750 MG/150 ML 750 MG/150 ML BAG IVPB SCH (08:52)
[2018-11-20] MEDS: Lactobacillus 1 EACH CAP.SPRINK PO SCH ×2 (08:53→19:41)
[2018-11-20] MEDS: Nicotine 21 MG PATCH.TD24 TD SCH (08:54)
[2018-11-20] MEDS: hydroCHLOROthiazide 25 MG TABLET PO SCH (08:54)
[2018-11-20] MEDS: ALPRAZolam 0.5 MG TABLET PO PRN ×2 (08:54→17:34)
--- NOTE | 2018-11-20 09:33 | Internal Med Progress Note ---
Date of Encounter: 11/20/18 Time of Encounter: 09:25 - Assessment and plan (1) Acute exacerbation of chronic obstructive airways disease Current Visit: Yes Status: Acute Assessment and plan: November 19. Continue IV Levaquin and steroids. She will be given NicoDerm patch to avoid tobacco withdrawal symptoms. Xanax will be available for anxiety. November 20. Clinically improving. Continue present Rx. (2) DM type 2 (diabetes mellitus, type 2) Current Visit: No Status: Acute Assessment and plan: November 19. Hemoglobin A1c ordered. November 20. Hemoglobin A1c elevated at 8.1%. 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 TSH suppressed at 0.173. Free T3 and T4 will be checked. November 20. T3 and T4 normal. Her PCP can refer her for further workup as needed. - Subjective Interval history: November 19. She has no new complaints. She still feels dyspneic. November 20. She has no new complaints. - Constitutional Vitals: Temp Pulse Resp BP Pulse Ox 98.4 F 101 28 126/66 97 11/20/18 06:21 11/20/18 06:21 11/20/18 07:34 11/20/18 06:21 11/20/18 07:34 Exam: She is resting comfortably in bed and appears in no acute distress. Her affect is overall cheerful. Lungs show no wheezing. I reviewed her medications and lab results. Internal Medicine: Result - Labs CBC & Chem 7: 11/20/18 05:25 11/20/18 05:25 Labs: Short CBC 11/19/18 11/20/18 Range/Units 06:28 05:25 WBC 12.2 H (4.3-11.1) K/mcL Hgb 14.4 (11.5-15.4) g/dL Hct 42.0 (35.3-44.9) % Plt Count 193 (140-400) K/mcL Neutrophils # 9.6 H 11.2 H (1.6-8.9) K/mcL BMP 11/20/18 05:25 Sodium 138 Potassium 4.0 Chloride 100 Carbon Dioxide 32 H BUN 24 H Creatinine 0.62 Glucose 258 H Calcium 9.4 Consult Discharge Plan - Plan Referrals: Chas Moreira MD [Primary Care Provider] - 1 week
[2018-11-20] MEDS: Budesonide/Formoterol 160/4.5 1 PUFF INH IH SCH ×2 (10:11→23:18)
[2018-11-21] MEDS: Ipratropium/Albuterol Neb 3 ML IH SCH ×2 (04:11→08:39)
[2018-11-21 05:24] LABS: Basophils % 0.3 %; Hematocrit 41.8 % (35.3-44.9); Hemoglobin 14.4 g/dL (11.5-15.4); Immature Granulocytes % 1.5 % (0-4); Lymphocytes # 0.5 K/mcL (0.6-4.6); Lymphocytes % 4.7 %; Mean Corpuscular HGB Conc 34.4 g/dL (31.6-35.5); Mean Corpuscular Hemoglobin 32.9 pg (28.0-33.3); Mean Corpuscular Volume 95.4 fL (83.0-100.0); Monocytes # 0.5 K/mcL (0.0-1.3); Monocytes % 4.4 %; Platelet Count 199 K/mcL (140-400); Red Blood Count 4.38 M/mcL (3.82-4.97); Red Cell Distribution Width 11.8 % (11.5-14.5); Segmented Neutrophils % 89.1 %
[2018-11-21 05:43] LABS: BUN/Creatinine Ratio 38 (6-26); Blood Urea Nitrogen 24 mg/dL (6-20); Calcium 9.4 mg/dL (8.6-10.3); Carbon Dioxide 32 mEq/L (23-29); Chloride 98 mEq/L (98-107); Glucose 253 mg/dL (70-105); Osmolality,Calculated 295 (280-300); Potassium 3.9 mEq/L (3.5-5.1); Sodium 136 mEq/L (136-145); eGFR For Non-African Americans > 60 (> 60)
[2018-11-21] MEDS: *HR* Enoxaparin 40 MG/0.4 ML SYRINGE SQ SCH (06:03)
[2018-11-21] MEDS: methylPREDNISolone 125 MG/2 ML VIAL IVP SCH (06:03)
[2018-11-21] MEDS: ALPRAZolam 0.5 MG TABLET PO PRN (06:10)
[2018-11-21] MEDS ORDERED: Acetaminophen 325 MG TABLET PO PRN (06:14)
[2018-11-21 06:19] VITALS: BP 126/82
[2018-11-21] MEDS: Nicotine 21 MG PATCH.TD24 TD SCH (08:33)
[2018-11-21] MEDS: Lactobacillus 1 EACH CAP.SPRINK PO SCH (08:34)
[2018-11-21] MEDS: hydroCHLOROthiazide 25 MG TABLET PO SCH (08:34)
[2018-11-21] MEDS: Levofloxacin 750 MG/150 ML 750 MG/150 ML BAG IVPB SCH (08:34)
[2018-11-21] MEDS: Budesonide/Formoterol 160/4.5 1 PUFF INH IH SCH (08:40)
--- NOTE | 2018-11-21 09:52 | Discharge Summary ---
Orders not resulted at time of discharge: Pending orders 11/17/18 23:31 Culture,Blood [BC] Stat Date of Encounter: 11/21/18 Time of Encounter: 09:40 - Discharge Diagnosis (1) Acute exacerbation of chronic obstructive airways disease Priority: Primary Status: Acute (2) DM type 2 (diabetes mellitus, type 2) Priority: Secondary Status: Acute Qualifiers: Diabetes mellitus correction insulin use: without correction use Diabetes mellitus complication status: without complication Qualified Code(s): E11.9 - Type 2 diabetes mellitus without complications (3) Low TSH level Priority: Secondary Status: Chronic Hospital course: Ms. Mcdaniels is a 48 year old female who came to emergency room stating she had onset of minimally productive cough and dyspnea 11/10/2018. She reports feeling feverish for 3 days but did not check her temperature. She reports headache, otalgia, and weakness. She went to local urgent care 11/16/2018 and received a prescription for Augmentin and prednisone. She did not feel improved the following day so came to emergency room. She was admitted to [facility] floor with diagnosis of COPD. Initial orders were written by the emergency room physician. I saw her on November 18 and performed a history and physical. She was started on IV Levaquin with steroids. WBC kia to 12.2 on November 20 with left shift. It had decreased slightly to 11.2 by the following day with decreased left shift. She felt clinically improved on November 21 and stable for discharge home. She will continue with antibiotic and probiotic for 3 additional days at discharge. I strongly encouraged her to become a nonsmoker. She will continue oxygen use at home. TSH returned low at 0.173. Free T4 and T3 returned within normal limits. Her PCP can order additional workup/refer as needed. Hemoglobin A1c returned elevated at 8.1%. Her PCP can initiate diabetic medication and monitor. She will follow with her PCP Dr. Moreira within 1 week. - Time Spent with Patient Total time spent providing and/or coordinating discharge services: - Discharge Medications Prescriptions: New ALPRAZolam [Xanax 0.5 MG Tablet] 0.5 mg PO Q6H PRN 3 Days #12 tablet PRN Reason: Anxiety Budesonide/Formoterol 160/4.5 [Symbicort 160/4.5] 2 puff IH BIDR #1 inh Lactobacillus [Culturelle] 1 each PO BID #6 cap.sprink levoFLOXacin [Levaquin] 750 mg PO DAILY #3 tablet predniSONE [PredniSONE] 10 mg PO BIDWM #6 tablet Continue Montelukast [Singulair] 10 mg PO DAILY Albuterol Sulfate [Albuterol Inhaler] 2 puff IH QID #1 inhaler Hydrochlorothiazide [Microzide] 12.5 mg PO DAILY Potassium Chloride 10 meq PO DAILY #30 tab.er.prt Discontinued Amoxicillin/Clavulanate [Augmentin] 875 mg PO BIDWM #20 tablet predniSONE [PredniSONE] 20 mg PO DAILY #13 tablet Home Medications: Montelukast [Singulair] 10 mg PO DAILY 05/31/16 [History] Albuterol Sulfate [Albuterol Inhaler] 2 puff IH QID #1 inhaler 07/20/18 [Rx] Potassium Chloride 10 meq PO DAILY #30 tab.er.prt 07/22/18 [Rx] Hydrochlorothiazide [Microzide] 12.5 mg PO DAILY 11/16/18 [History] ALPRAZolam [Xanax 0.5 MG Tablet] 0.5 mg PO Q6H PRN 3 Days #12 tablet 11/21/18 [Rx] Budesonide/Formoterol 160/4.5 [Symbicort 160/4.5] 2 puff IH BIDR #1 inh 11/21/18 [Rx] Lactobacillus [Culturelle] 1 each PO BID #6 cap.sprink 11/21/18 [Rx] levoFLOXacin [Levaquin] 750 mg PO DAILY #3 tablet 11/21/18 [Rx] predniSONE [PredniSONE] 10 mg PO BIDWM #6 tablet 11/21/18 [Rx] Allergies/Adverse Reactions: Allergy/AdvReac Type Severity Reaction Status Date / Time No Known Allergies Allergy Verified 11/17/18 23:19 Date of admission: 11/18/18 18:02 Primary care physician: Chas Moreira MD - Constitutional Vitals: Temp Pulse Resp BP Pulse Ox 97.7 F 98 18 126/82 98 11/21/18 06:18 11/21/18 06:18 11/21/18 08:41 11/21/18 06:18 11/21/18 08:41 - Patient Status Disposition: Home, Self-Care - Discharge Instructions Follow Up With: Chas Moreira MD [Primary Care Provider] - 1 week - Diet and Activity Activity: resume usual activities as tolerated Diet: diabetic diet
== END 2018-11-21 10:45 | disposition home or self-care (01) | DRG 192 ==
LOC: EMEROOPIK 23:08 → INPPIK 23:08
PROVIDERS: ADMIT Internal Medicine; ATTEND Internal Medicine